=== PATIENT | male | born 1960 | race Caucasian/White ===

== ENCOUNTER 2017-01-14 09:00 | Day surgery (SDC) | payer OTHER ==
--- NOTE | ~2017-01-14 | EGD ---
EGD REPORT [facility] [address] [id number] NAME: LOUIS MORE : [birth year] STATUS : REG [facility]#: [id number] AGE: 56 ADM/REG DATE : 01/14/17 MR#: [id number] REPORT SERV DATE: 01/14/17 DICTATED BY: SHANNAN BALTAZAR DATE: 01/14/17 REPORT STATUS : Draft TRANSCRIBED BY: [facility] DATE: 01/14/17 Pulmonology Patient Name: Louis More Procedure Date: 01/14/2017 11:40 AM Date of : 1960 Attending MD: JHONATHAN BALTAZAR MD Procedure Date No Time: 01/14/2017 Procedure: Bronchoscopy Indications: Chronic cough Providers: JHONATHAN BALTAZAR MD Referring MD: MUNIRA BENITEZ MD Medicines: Lidocaine 2% 20 mL Complications: No immediate complications Procedure: Pre-Anesthesia Assessment: - A History and Physical has been performed. Patient meds and allergies have been reviewed. The risks and benefits of the procedure and the sedation options and risks were discussed with the patient. All questions were answered and informed consent was obtained. Patient identification and proposed procedure were verified prior to the procedure by the physician and the nurse in the procedure room. Mental Status Examination: alert and oriented. Airway Examination: normal oropharyngeal airway. Respiratory Examination: clear to auscultation. CV Examination: normal and RRR, no murmurs, no S3 or S4. ASA Grade Assessment: III - A patient with severe systemic disease. After reviewing the risks and benefits, the patient was deemed in satisfactory condition to undergo the procedure. The anesthesia plan was to use general anesthesia. Immediately prior to administration of medications, the patient was re-assessed for adequacy to receive sedatives. The heart rate, respiratory rate, oxygen saturations, blood pressure, adequacy of pulmonary ventilation, and response to care were monitored throughout the procedure. The physical status of the patient was re-assessed after the procedure. After obtaining informed consent, the Bronchoscope was introduced through the mouth, via laryngeal mask airway and advanced to the tracheobronchial tree. The procedure was accomplished without difficulty. The patient tolerated the procedure well. Findings: The laryngeal mask airway is in normal position. The vocal cords move normally with breathing. The subglottic space is normal. The trachea is of normal caliber. The livan is sharp. The tracheobronchial tree was EGD REPORT [facility] [address] [address] NAME: LOUIS MORE : [birth year] STATUS : [facility] [id number] AGE: 56 ADM/REG DATE : 01/14/17 MR#: [id number] REPORT SERV DATE: 01/14/17 DICTATED BY: SHANNAN BALTAZAR DATE: 01/14/17 REPORT STATUS : Draft TRANSCRIBED BY: [employer] DATE: 01/14/17 examined to at least the first subsegmental level. Bronchial mucosa and anatomy are normal; there are no endobronchial lesions, and no secretions. Bronchoalveolar lavage was performed in the right middle lobe of the lung and sent for cell count, cytology, bacterial culture, viral smears \T\ culture, and fungal and AFB analysis. 180 mL of fluid were instilled. 40 mL were returned. The return was cellular. Impression: - Chronic cough - The examination was normal. - Bronchoalveolar lavage was performed. Recommendation: - Await test results. - Chest X-ray. - Follow up in clinic. Attending Participation: I personally performed the entire procedure. JHONATHAN BALTAZAR MD 01/14/2017 11:59 AM This report has been signed electronically. Number of Addenda: 0 Note Initiated On: 01/14/2017 11:40 AM [id number] [address]
--- NOTE | ~2017-01-14 | EGD ---
EGD REPORT [facility] [address] [address] NAME: LOUIS MORE : [birth year] STATUS : [facility]#: [id number] AGE: 56 ADM/REG DATE : 01/14/17 MR#: [id number] REPORT SERV DATE: 01/16/17 DICTATED BY: SHANNAN BALTAZAR DATE: 01/16/17 REPORT STATUS : Draft TRANSCRIBED BY: [facility] DATE: 01/16/17 Pulmonology Patient Name: Louis More Procedure Date: 01/14/2017 11:40 AM Date of : 1960 Attending MD: JHONATHAN BALTAZAR MD Procedure Date No Time: 01/14/2017 Procedure: Bronchoscopy Indications: Chronic cough Providers: JHONATHAN BALTAZAR MD Referring MD: MUNIRA BENITEZ MD Medicines: Lidocaine 2% 20 mL Complications: No immediate complications Procedure: Pre-Anesthesia Assessment: - A History and Physical has been performed. Patient meds and allergies have been reviewed. The risks and benefits of the procedure and the sedation options and risks were discussed with the patient. All questions were answered and informed consent was obtained. Patient identification and proposed procedure were verified prior to the procedure by the physician and the nurse in the procedure room. Mental Status Examination: alert and oriented. Airway Examination: normal oropharyngeal airway. Respiratory Examination: clear to auscultation. CV Examination: normal and RRR, no murmurs, no S3 or S4. ASA Grade Assessment: III - A patient with severe systemic disease. After reviewing the risks and benefits, the patient was deemed in satisfactory condition to undergo the procedure. The anesthesia plan was to use general anesthesia. Immediately prior to administration of medications, the patient was re-assessed for adequacy to receive sedatives. The heart rate, respiratory rate, oxygen saturations, blood pressure, adequacy of pulmonary ventilation, and response to care were monitored throughout the procedure. The physical status of the patient was re-assessed after the procedure. After obtaining informed consent, the Bronchoscope was introduced through the mouth, via laryngeal mask airway and advanced to the tracheobronchial tree. The procedure was accomplished without difficulty. The patient tolerated the procedure well. Findings: The laryngeal mask airway is in normal position. The vocal cords move normally with breathing. The subglottic space is normal. The trachea is of normal caliber. The livan is sharp. The tracheobronchial tree was EGD REPORT [facility] [address] [address] NAME: LOUIS MORE : [birth year] STATUS : [facility]#: [id number] AGE: 56 ADM/REG DATE : 01/14/17 MR#: [id number] REPORT SERV DATE: 01/16/17 DICTATED BY: SHANNAN BALTAZAR DATE: 01/16/17 REPORT STATUS : Draft TRANSCRIBED BY: [employer] DATE: 01/16/17 examined to at least the first subsegmental level. Bronchial mucosa and anatomy are normal; there are no endobronchial lesions, and no secretions. Bronchoalveolar lavage was performed in the right middle lobe of the lung and sent for cell count, cytology, bacterial culture, viral smears \T\ culture, and fungal and AFB analysis. 180 mL of fluid were instilled. 40 mL were returned. The return was cellular. Impression: - Chronic cough - The examination was normal. - Bronchoalveolar lavage was performed. Recommendation: - Await test results. - Chest X-ray. - Follow up in clinic. Attending Participation: I personally performed the entire procedure. JHONATHAN BALTAZAR MD 01/14/2017 11:59 AM This report has been signed electronically. Number of Addenda: 0 Note Initiated On: 01/14/2017 11:40 AM [address] [id number]
[~2017-01-14 09:00] MED LIST: ANTIEMETIC; CEFT5 PO; KAPIDEX60 MG PO; KLONO5 PO; PROAIR HFA INH; PROAIRRESP INH; PROZ10 PO; SEPTRA DS1 TAB PO; Z300 PO; ZOFRAN4 PO
[2017-01-14 09:27] LABS: BASOPHILS ABSOLUTE 0.07 10/3/uL (0.0-0.16); EOSINOPHILS 2.8 %; EOSINOPHILS ABSOLUTE 0.19 10/3/uL (0.0-0.53); HEMATOCRIT 46.3 % (40.0-51.0); HEMOGLOBIN 16.4 g/dL (13.6-17.8); IMMATURE GRANULOCYTES 0.1 %; IMMATURE GRANULOCYTES ABSOLUTE 0.01 10/3/uL (0.0-0.11); LYMPHOCYTES 39.1 %; LYMPHOCYTES ABSOLUTE 2.66 10/3/uL (0.67-4.30); MEAN CORPUS HGB CONC 35.4 g/dL (32.0-36.0); MEAN CORPUSCULAR HEMOGLOB 31.2 pg (26.0-34.0); MEAN PLATELET VOLUME 9.2 fL (9.2-13.0); MONOCYTES 6.3 %; MONOCYTES ABSOLUTE 0.43 10/3/uL (0.21-1.20); NEUTROPHILS 50.7 %; NEUTROPHILS ABSOLUTE 3.44 10/3/uL (2.02-8.40); PLATELET COUNT 224 10/3/uL (150-400); RBC DISTRIBUTION WIDTH 12.8 % (12.0-16.0); RED CELL COUNT 5.26 10/6/uL (4.7-6.1); WHITE BLOOD CELLS 6.8 10/3/uL (4.5-10.5)
[2017-01-14 09:28] LABS: MANUAL DIFF NO %
[2017-01-14 09:36] LABS: PARTIAL THROMBO TIME 24.7 SEC (22.5-37.2); PROTIME (NOT ORD) 12.9 SEC (12.0-14.5)
[2017-01-14 14:33] LABS: BD FL LYMPH (NOT ORD) 17 %; BF BASO (NOT OF) 0 %; BF LARGE MONONUCLEAR 78 %; BODY FLUID EOS (NOT ORD) 1 %; BODY FLUID SEG (NOT ORD) 4 %
[2017-01-14 14:35] LABS: BD FL SOURCE (NOT ORD) BAL; BF TOTAL CELL CT (NOT ORD 194 /MM3; BODY FLUID RBC (NOT ORD) < 1000 /MM3
== END 2017-01-14 13:53 | disposition home or self-care (01) ==
LOC: DMU 09:00
PROVIDERS: Internal Medicine
PROC: 0B9D8ZX Drainage of Right Middle Lung Lobe, Via Natural or Artificial Opening Endoscopic, Diagnostic (ICD-10-PCS; principal; 2017-01-14 10:30)
DX: R05 Cough (principal); I10 Essential (primary) hypertension; K21.9 Gastro-esophageal reflux disease without esophagitis; F41.9 Anxiety disorder, unspecified; F32.9 Major depressive disorder, single episode, unspecified
CPT/HCPCS: 71010; 85025; 85610; 85730; 87015; 87070; 87101; 87102; 87116; 87205; 87252; 88112; 89051; 93005; A9270-GY